=== PATIENT | male | born 1995 | race Asian ===

== ENCOUNTER 2023-01-22 10:03 | Outpatient (CLI) | payer OTHER | END 2023-01-22 10:04 | disposition home or self-care (01) | LOC: CSHRAD 10:03 | PROVIDERS: ATTEND Internal Medicine Pulmonary Disease | DX: R06.02 Shortness of breath (principal) | CPT/HCPCS: 71046 ==

== ENCOUNTER 2023-02-12 07:44 | Outpatient (CLI) | payer OTHER | END 2023-02-12 07:45 | disposition home or self-care (01) | LOC: CSHCP 07:44 | PROVIDERS: ATTEND Internal Medicine Pulmonary Disease | DX: R06.00 Dyspnea, unspecified (principal); R94.2 Abnormal results of pulmonary function studies | CPT/HCPCS: 94010; 94726; 94729; 94760 ==